=== PATIENT | male | born 2005 | race Caucasian/White ===

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

== ENCOUNTER 2024-10-13 11:06 | Outpatient (CLI) | payer BC, SELFPAY ==
[2024-10-13 15:29] LABS: Influenza A, PCR Not Detected (NotDetected); Influenza B, PCR Not Detected (NotDetected)
[2024-10-13 17:42] LABS: Coronavirus 19, PCR Detected (NotDetected)
== END 2024-10-13 23:59 | disposition home or self-care (01) ==
LOC: LAB.DROPOF 10-14 12:07
PROVIDERS: PCP Student in an Organized Health Care Education/Training Program; Visit Provider Student in an Organized Health Care Education/Training Program
DX: R52 Pain, unspecified (principal); B34.9 Viral infection, unspecified
CPT/HCPCS: 87636